=== PATIENT | male | born 1970 | race Caucasian/White ===

== ENCOUNTER 2019-06-18 15:26 | Emergency (ER) | payer MEDICAID, OTHER ==
[~2019-06-18] VITALS: Ht 190.5 cm; Wt 81.8 kg
[~2019-06-18 15:26] MED LIST: LINE600T12 PO; NO HOME MEDS
[2019-06-18 15:35] VITALS: BP 124/83
--- NOTE | 2019-06-18 16:10 | NUR ---
pt. went straight over to overflow area. pt. did not want security going through his belonging. pt. stated " i checked david-slef in and i want to leave. pt. had not been seen by a provider and left with his belongings. pt. denied homicidal and suicidal ideations and security walked him out.
== END 2019-06-18 16:00 | disposition left against medical advice (07) ==
LOC: ER 15:26
DX: R44.0 Auditory hallucinations (principal); Z53.21 Procedure and treatment not carried out due to patient leaving prior to being seen by health care provider

== ENCOUNTER 2019-08-24 17:39 | Emergency (ER) | payer MEDICAID ==
[~2019-08-24] VITALS: Ht 190.5 cm; Wt 77.5 kg
[2019-08-24 17:44] VITALS: BP 107/69
== END 2019-08-24 19:11 | disposition left against medical advice (07) ==
LOC: ER 17:40
DX: R10.30 Lower abdominal pain, unspecified (principal); Z53.21 Procedure and treatment not carried out due to patient leaving prior to being seen by health care provider

== ENCOUNTER 2019-12-11 15:59 | Emergency (ER) | payer MEDICAID ==
[~2019-12-11] VITALS: Ht 190.5 cm; Wt 80.0 kg
--- NOTE | 2019-12-11 17:00 | NUR ---
Pt reports an area in the lower abd/groin that he believes is a hernia and has been there for approximately 4 - 5 months but is worsening in symptoms.
[2019-12-11 18:24] VITALS: BP 125/82
== END 2019-12-11 18:27 | disposition home or self-care (01) ==
LOC: ER 16:00
DX: K46.9 Unspecified abdominal hernia without obstruction or gangrene (principal); G89.29 Other chronic pain; Z98.890 Other specified postprocedural states; Z88.6 Allergy status to analgesic agent; Z91.048 Other nonmedicinal substance allergy status; Z88.8 Allergy status to other drugs, medicaments and biological substances; Z79.899 Other long term (current) drug therapy
CPT/HCPCS: 99281

== ENCOUNTER 2020-03-29 10:19 | Emergency (ER) | payer MEDICAID ==
[~2020-03-29] VITALS: Ht 188 cm; Wt 80.0 kg
[2020-03-29 10:25] VITALS: BP 125/86
== END 2020-03-29 11:54 | disposition home or self-care (01) ==
LOC: ER 10:19
DX: R10.32 Left lower quadrant pain (principal); Z53.21 Procedure and treatment not carried out due to patient leaving prior to being seen by health care provider

== ENCOUNTER 2021-10-03 00:42 | Emergency (ER) | payer MEDICAID ==
[2021-10-03] MEDS ORDERED: NALO4SPR BOTHNARES (03:19)
--- NOTE | 2021-10-03 03:41 | NUR ---
Pt resting comfy with mom at [facility]. AAOxs3, VS within normal range. NO acute distress noted. Pt provided water. Will monitor throughout.
[2021-10-03 04:55] VITALS: BP 132/76
== END 2021-10-03 04:59 | disposition home or self-care (01) ==
LOC: ER 00:42
DX: T40.601A Poisoning by unspecified narcotics, accidental (unintentional), initial encounter (principal); G89.29 Other chronic pain; F15.90 Other stimulant use, unspecified, uncomplicated; Z98.890 Other specified postprocedural states; Z72.89 Other problems related to lifestyle; Z88.6 Allergy status to analgesic agent; Z88.8 Allergy status to other drugs, medicaments and biological substances; Z79.899 Other long term (current) drug therapy; Y92.89 Other specified places as the place of occurrence of the external cause
CPT/HCPCS: 99283